=== PATIENT | male | born 2000 | race Caucasian/White ===

== ENCOUNTER 2020-09-02 19:51 | Emergency (ER) | payer OTHER ==
[~2020-09-02] VITALS: Ht 182.9 cm; Wt 63.5 kg
[2020-09-02 19:55] VITALS: Ht 182.9 cm; Wt 63.5 kg
[2020-09-03 00:35] VITALS: BP 116/69
== END 2020-09-03 00:35 | disposition home or self-care (01) ==
LOC: ED 19:51
DX: T40.601A Poisoning by unspecified narcotics, accidental (unintentional), initial encounter (principal); Y92.89 Other specified places as the place of occurrence of the external cause
CPT/HCPCS: G0480; J2310; J7030